=== PATIENT | female | born 1935 | race Caucasian/White ===

== ENCOUNTER 2016-07-24 22:46 | Emergency (ER) | payer MEDICARE, BC ==
[~2016-07-24] VITALS: Ht 162.6 cm; Wt 74.8 kg
[~2016-07-24 22:46] MED LIST: AMLO5TAB2 PO; ASPI81TA2 PO; ATOR20TA58 PO; BETA10DR OP; BRIN10DR EACHEYE; CALC500T50 PO; CHOL100013 PO; GABA-586 PO; LATA2.5D2 EACHEYE; LEVO75TA5 PO; LIDO700A4 TP; LISI40TA PO; METO25TA9 PO; OMEP40CA5 PO; OXYC10TA PO; RIVA15TA PO; RIVA20TA2 PO
--- NOTE | 2016-07-24 23:13 | PHYS DOC ---
Past Medical History Past Medical History: Other Additional Past Medical Histor: bilat breast ca 2011,osteo-cartilagenous exostosis of tib/fib, Past Surgical History: Other Additional Past Surgical Histo: bilat breast cancer Alcohol Use: None Drug Use: None Adult General Chief Complaint Chief Complaint: UPPER EXTREMITY PAIN HPI HPI Patient is a 81 year old female who presents with right shoulder pain. Patient reports approximately 2030 tonight she started having pain in her right posterior shoulder near the shoulder blade. She reports a dull ache with occasional sharp shooting pain without clear inciting or mitigating factors. She took an oxycodone he uses for chronic pain, with insufficient relief. She denies any anterior chest pain. She also denies shortness of breath. She does report that her bones of been hurting today with the weather change. No other acute complaints. Review of Systems Review of Systems Constitutional: Denies fever or chills Eyes: Denies change in visual acuity or eye pain HENT: Denies nasal congestion or sore throat Respiratory: Denies cough or shortness of breath Cardiovascular: Denies chest pain GI: Denies abdominal pain, nausea, vomiting, bloody stools or diarrhea : Denies dysuria or hematuria Musculoskeletal: R posterior shoulder pain Integument: Denies rash or skin lesions Neurologic: Denies headache, focal weakness or sensory changes Current Medications Current Medications Current Medications Medications (Trade) Dose Ordered Sig/Vaughn Start Time Stop Time Status Last Admin Dose Admin Diazepam (Valium) 5 mg 1X ONCE 07/24/16 23:30 07/24/16 23:31 DC 07/24/16 23:40 5 MG Allergies Allergies Allergies Coded Allergies Type Severity Reaction Last Updated Verified No Known Drug Allergies 08/29/15 No Physical Exam Physical Exam Constitutional: Well developed, well nourished, no acute distress, non-toxic appearance HENT: Normocephalic, atraumatic, bilateral external ears normal Eyes: EOMI, conjunctiva normal, no discharge Neck: Normal range of motion, no stridor Cardiovascular: Heart rate normal, regular rhythm, no murmur Lungs & Thorax: Bilateral breath sounds clear to auscultation Abdomen: Bowel sounds normal, soft, non-distended, no TTP Skin: Warm, dry, no erythema, no rash Extremities: R shoulder visually unremarkable compared to L; full active ROM, 2 + radial pulse, sensation to light touch fully intact; mild TTP along medial scapula Neurologic: Alert and oriented X 3, no gross deficits noted Current Patient Data Vital Signs Vital Signs Date Time Temp Pulse Resp B/P Pulse Ox O2 Delivery O2 Flow Rate FiO2 07/24/16 23:08 98.3 65 20 180/79 98 Room Air 98.3 EKG EKG EKG (my read): sinus rhythm, rate 67, R superior axis deviation, single PVC noted, no acute ST/T changes Radiology/Procedures Radiology/Procedures CXR (my read): No acute abnormality X-ray R shoulder (my read): No acute abnormality Course & Med Decision Making Course & Med Decision Making Pertinent Labs and Imaging studies reviewed. (See chart for details) Patient is 81-year-old female who presents with right shoulder pain. Suspect muscle spasm. Will obtain chest x-ray and x-ray of right shoulder. Will also check EKG and labs. Dose of Valium ordered for muscle relaxation. EKG and x-ray results per my read as above. Discussed results of these with patient and daughter. Patient reports pain alleviated after receiving Valium. Still awaiting results of blood work. At this time will turn patient care over to Dr. Whalen. Assuming no marked abnormality on blood work will plan discharge home with rx for valium, instructions for close follow up, strict return precautions. Dragon Disclaimer Dragon Disclaimer This electronic medical record was generated, in whole or in part, using a voice recognition dictation system. Departure Departure Impression: Primary Impression: Right shoulder pain Referrals: DEUCE PADILLA MD (PCP) Patient Instructions: Muscle Cramps, Shoulder Pain Additional Instructions: Thank you for allowing us to provide care today in the Emergency Department. Take the provided medication as directed. Use caution after taking this medication as it can make you drowsy. Schedule a follow up appointment with your primary care doctor. Return promptly to the Emergency Department if you develop any new or concerning symptoms. Scripts Diazepam (Valium)5 Mg Tablet5 Mg PO TID PRN MUSCLE SPASMS #10 TAB Prov:PITA GOMEZ MD 07/25/16 PITA GOMEZ MD Jul 24, 2016 23:13
[2016-07-24] MEDS ORDERED: DIAZEPAM 5 MG TABLET PO ONE (23:30)
[2016-07-25] MEDS ORDERED: DIAZ5TAB PO (00:42)
[2016-07-25 00:58] LABS: BASO # 0.1 x10^3/uL (0.0-0.2); BASO % 2 % (0-3); EOS % 4 % (0-3); HEMOGLOBIN 11.3 g/dL (12.0-15.5); LYMPH % 26 % (24-48); MEAN CORPUSCULAR HEMOGLOBIN 32 pg (25-35); MEAN CORPUSCULAR HGB CONC 33 g/dL (31-37); MEAN CORPUSCULAR VOLUME 97 fL (79-100); MONO % 8 % (0-9); NEUT % 60 % (31-73); PLATELET COUNT 183 x10^3/uL (140-400); RED BLOOD COUNT 3.49 x10^6/uL (3.50-5.40); RED CELL DISTRIBUTION WIDTH 13.7 % (11.5-14.5); WHITE BLOOD COUNT 3.7 x10^3/uL (4.0-11.0)
[2016-07-25 01:11] LABS: GFR 53.5; POTASSIUM 3.6 mmol/L (3.5-5.1)
[2016-07-25 01:30] VITALS: BP 183/74
--- NOTE | 2016-07-25 08:19 | RAD ---
Right shoulder, 3 views, 07/24/2016: History: Shoulder pain The bony structures are demineralized. No fracture or dislocation is identified. There is mild spurring at the acromioclavicular and glenohumeral articulations. There is mild deformity of the proximal right humeral shaft suggesting small bony exostoses versus old posttraumatic deformity. Surgical clips are projected over the right axillary region. IMPRESSION: 1. Bony demineralization. 2. Mild degenerative change. 3. No acute bony abnormality is detected.
--- NOTE | 2016-07-25 08:21 | RAD ---
Chest, 2 views, 07/24/2016: History: Shoulder pain Comparison is made to a study from 08/29/2015. The heart is mildly enlarged. There is calcific plaquing and tortuosity of the thoracic aorta. The pulmonary vascularity is normal. No pulmonary infiltrates are seen. There is no evidence of pleural fluid. The bony structures are demineralized. There is mild spurring in the spine. Surgical clips are projected over both axillary regions. IMPRESSION: 1. Mild cardiomegaly and aortic atherosclerosis. 2. No acute cardiopulmonary abnormality is detected.
--- NOTE | 2016-07-25 12:12 | EKG ---
[facility] [address] [place] [address] Test Date: 2016-07-24 Test Time: 22:54:35 Pat Name: JONEL KEATING Department: Room: Gender: F [employer] Manager: : 1935 Requested By: PITA GOMEZ Order Number: [id number] Reading MD: Measurements Intervals [place] Rate: 67 P: 161 CA: 160 QRS: -166 QRSD: 86 T: 164 QT: 380 QTc: 404 Interpretive Statements SINUS RHYTHM VENTRICULAR PREMATURE COMPLEX(ES) ABNORMAL RIGHT SUPERIOR AXIS DEVIATION QRS(T) CONTOUR ABNORMALITY CONSIDER ANTEROSEPTAL MYOCARDIAL DAMAGE CONSISTENT WITH HIGH LATERAL INFARCT AGE UNDETERMINED CONSISTENT WITH INFERIOR INFARCT AGE UNDETERMINED RI6.01 Unconfirmed report No previous ECG available for comparison
== END 2016-07-25 01:44 | disposition home or self-care (01) ==
LOC: ER 22:46
DX: M25.511 Pain in right shoulder (principal)
CPT/HCPCS: 36415; 71020; 73030; 80048; 84484; 85027; 93005; 99285-25

== ENCOUNTER → 2016-10-08 | Outpatient (CLI) | payer MEDICARE, BC ==
[~2016-10-08] MED LIST changes: +DIAZ5TAB PO
--- NOTE | 2016-10-08 16:22 | KCIC ---
PROCEDURE Three-view right knee HISTORY Chronic right knee pain after a fall 6 weeks ago. COMPARISON October 02, 2015. FINDINGS Right knee replacement. Numerous osteochondromas identified at the distal femur and proximal tibia and fibula, compatible with multiple hereditary exostoses, correlate with clinical history. No evidence of acute fracture. Generalized bone demineralization. Mild lucency about the tibial and femoral prostheses appears similar to the prior study. IMPRESSION 1. No evidence of acute fracture or dislocation. 2. Multiple osteochondromas, most compatible with multiple hereditary exostoses. Electronically signed by: Mark Mackenzie MD (October 08, 2016 16:21:10)
--- NOTE | 2016-10-08 16:39 | KCIC ---
PROCEDURE Two view study of the right hip HISTORY Chronic right hip pain after a fall 6 weeks ago. FINDINGS Multiple osteochondromas are seen. No osteolytic process is evident. No acute fracture is seen. No dislocation of the right hip joint is seen. There is mild primary degenerative osteoarthritis of the right hip joint. Heterotopic soft tissue ossification is seen. A sacroplasty is evident on the right side. IMPRESSION Osteochondromatosis. No acute fracture. Electronically signed by: Frank Hutchison MD (October 08, 2016 16:38:44)
== END | disposition home or self-care (01) ==
LOC: KCIC 15:31
PROVIDERS: ATTEND Internal Medicine
DX: M25.561 Pain in right knee (principal); G89.29 Other chronic pain; M25.551 Pain in right hip
CPT/HCPCS: 73502; 73562

== ENCOUNTER → 2017-12-16 | Outpatient (CLI) | payer MEDICARE, BC | END | disposition home or self-care (01) | LOC: KCIC 16:01 | DX: S42.292A Other displaced fracture of upper end of left humerus, initial encounter for closed fracture (principal); M79.89 Other specified soft tissue disorders; I12.9 Hypertensive chronic kidney disease with stage 1 through stage 4 chronic kidney disease, or unspecified chronic kidney disease; E78.5 Hyperlipidemia, unspecified; E03.9 Hypothyroidism, unspecified; N18.3 Chronic kidney disease, stage 3 (moderate); K21.9 Gastro-esophageal reflux disease without esophagitis; J45.909 Unspecified asthma, uncomplicated; X58.XXXA Exposure to other specified factors, initial encounter; Y93.89 Activity, other specified; Y92.89 Other specified places as the place of occurrence of the external cause; Y99.8 Other external cause status | CPT/HCPCS: 73080; 73090 ==

== ENCOUNTER 2017-12-17 12:21 | Emergency (ER) | payer MEDICARE, BC | END 2017-12-17 14:15 | disposition home or self-care (01) | LOC: ER 12:21 | DX: S52.002A Unspecified fracture of upper end of left ulna, initial encounter for closed fracture (principal); S80.01XA Contusion of right knee, initial encounter; E78.00 Pure hypercholesterolemia, unspecified; K21.9 Gastro-esophageal reflux disease without esophagitis; I48.91 Unspecified atrial fibrillation; I10 Essential (primary) hypertension; E03.9 Hypothyroidism, unspecified; W01.0XXA Fall on same level from slipping, tripping and stumbling without subsequent striking against object, initial encounter; Y93.89 Activity, other specified; Y99.8 Other external cause status; Y92.89 Other specified places as the place of occurrence of the external cause | CPT/HCPCS: 29125; 73562; 99284-25 ==

== ENCOUNTER 2018-01-06 19:16 | Emergency (ER) | payer MEDICARE, BC ==
[~2018-01-06] VITALS: Ht 162.6 cm; Wt 70.3 kg
[~2018-01-06 19:16] MED LIST changes: +ASPI-630 PO; -ASPI81TA2 PO; -CALC500T50 PO; +CALC500T54 PO; +LISI-130 PO; -LISI40TA PO; +METO-239 PO; -METO25TA9 PO
--- NOTE | 2018-01-06 20:00 | PHYS DOC ---
Past Medical History Past Medical History: A-Fib, Anxiety, Fibromyalgia, GERD, High Cholesterol, Hypertension, Hypothyroid, Other Additional Past Medical Histor: bilat breast ca 2011,osteo-cartilagenous exostosis of tib/fib, Past Surgical History: Other Additional Past Surgical Histo: bilat breast cancer Alcohol Use: None Drug Use: None Adult General Chief Complaint Chief Complaint: ALTERED MENTAL STATUS HPI HPI Patient is a 82 year old female who is brought in by daughter complaining of "full blown dementia". By that she means patient is more forgetful she has noticed some mild forgetfulness over the last few months over the last 2 weeks she has increased. She is complaining more of really not remembering much. Apparently she went to the doctor today to check on her elbow and then later in the afternoon the patient did not remember the doctor's appointment she did not last time she took her medication she was at home which she did not know that she was at home. Daughters brought her in to be evaluated. She is very worried about this severe dementia that is just apparently cropped up. She denies any symptoms no headache no chest pain no fever no shortness of breath no coughing she says she is eating well the elbow is actually healing quite well. Chronic knee pain Review of Systems Review of Systems Negative for dysuria All other systems were reviewed and found to be within normal limits, except as documented in this note. Current Medications Current Medications Current Medications Medications (Trade) Dose Ordered Sig/Vaughn Start Time Stop Time Status Last Admin Dose Admin Cephalexin HCl (Keflex) 500 mg 1X STAT 01/06/18 21:15 01/06/18 21:18 DC 01/06/18 21:37 500 MG Allergies Allergies Allergies Coded Allergies Type Severity Reaction Last Updated Verified No Known Drug Allergies 08/29/15 No Physical Exam Physical Exam Constitutional: Well developed, well nourished, no acute distress, non-toxic appearance. [] HENT: Normocephalic, atraumatic, bilateral external ears normal, oropharynx moist, no oral exudates, nose normal. [] Eyes: PERRLA, EOMI, conjunctiva normal, no discharge. [] Neck: Normal range of motion, no tenderness, supple, no stridor. [] Cardiovascular:Heart rate regular rhythm, no murmur [] Lungs & Thorax: Bilateral breath sounds clear to auscultation [] Abdomen: Bowel sounds normal, soft, no tenderness, no masses, no pulsatile masses. [] Skin: Warm, dry, no erythema, no rash. [] Back: No tenderness, no CVA tenderness. [] Extremities: Mild tenderness of bilateral knees no trauma seen Neurologic: Alert and responsive PLEASANTLy confused moving all extremities. Psychologic: Affect normal, judgement normal, mood normal. [] Current Patient Data Vital Signs Vital Signs Date Time Temp Pulse Resp B/P (MAP) Pulse Ox O2 Delivery O2 Flow Rate FiO2 01/06/18 22:00 66 18 99 01/06/18 19:22 98.0 182/88 (119) Room Air 98.0 Lab Values Laboratory Tests Test 01/06/18 20:04 01/06/18 20:15 01/06/18 21:25 White Blood Count 4.7 x10^3/uL (4.0-11.0) Red Blood Count 3.94 x10^6/uL (3.50-5.40) Hemoglobin 13.1 g/dL (12.0-15.5) Hematocrit 39.1 % (36.0-47.0) Mean Corpuscular Volume 99 fL (79-100) Mean Corpuscular Hemoglobin 33 pg (25-35) Mean Corpuscular Hemoglobin Concent 34 g/dL (31-37) Red Cell Distribution Width 15.8 % (11.5-14.5) H Platelet Count 268 x10^3/uL (140-400) Neutrophils (%) (Auto) 66 % (31-73) Lymphocytes (%) (Auto) 21 % (24-48) L Monocytes (%) (Auto) 10 % (0-9) H Eosinophils (%) (Auto) 2 % (0-3) Basophils (%) (Auto) 1 % (0-3) Neutrophils # (Auto) 3.1 x10^3uL (1.8-7.7) Lymphocytes # (Auto) 1.0 x10^3/uL (1.0-4.8) Monocytes # (Auto) 0.5 x10^3/uL (0.0-1.1) Eosinophils # (Auto) 0.1 x10^3/uL (0.0-0.7) Basophils # (Auto) 0.1 x10^3/uL (0.0-0.2) Prothrombin Time 12.8 SEC (11.7-14.0) Prothrombin Time INR 1.0 (0.8-1.1) Urine Collection Type Unknown Urine Color Yellow Urine Clarity Clear Urine pH 5.0 Urine Specific [place] 1.020 Urine Protein Negative mg/dL (NEG-TRACE) Urine Glucose (UA) Negative mg/dL (NEG) Urine Ketones (Stick) Negative mg/dL (NEG) Urine Blood Moderate (NEG) Urine Nitrite Negative (NEG) Urine Bilirubin Negative (NEG) Urine Urobilinogen Dipstick 0.2 mg/dL (0.2 mg/dL) Urine Leukocyte Esterase Moderate (NEG) Urine RBC 1-2 /HPF (0-2) Urine WBC 1-4 /HPF (0-4) Urine Bacteria Moderate /HPF (0-FEW) Urine Hyaline Casts Few /HPF Urine Mucus Mod /LPF Sodium Level 141 mmol/L (136-145) Potassium Level 3.1 mmol/L (3.5-5.1) L Chloride Level 104 mmol/L (98-107) Carbon Dioxide Level 24 mmol/L (21-32) Anion Gap 13 (6-14) Blood Urea Nitrogen 12 mg/dL (7-20) Creatinine 1.1 mg/dL (0.6-1.0) H Estimated GFR (Cockcroft-Gault) 47.8 BUN/Creatinine Ratio 11 (6-20) Glucose Level 103 mg/dL (70-99) H Calcium Level 9.3 mg/dL (8.5-10.1) Total Bilirubin 0.6 mg/dL (0.2-1.0) Aspartate Amino Transferase (AST) 20 U/L (15-37) Alanine Aminotransferase (ALT) 26 U/L (14-59) Alkaline Phosphatase 89 U/L (46-116) Total Protein 7.2 g/dL (6.4-8.2) Albumin 3.6 g/dL (3.4-5.0) Albumin/Globulin Ratio 1.0 (1.0-1.7) Ethyl Alcohol Level < 10 mg/dL (0-10) Laboratory Tests 01/06/18 20:04 Laboratory Tests 01/06/18 21:25 EKG EKG [] Interpretation Time: EKG shows normal sinus rhythm rate of 71 no ischemic changes noted interpreted by me time of encounter. Chest x-ray shows no definite pneumonia. There is probably atelectasis at the right lower lung field. Radiology/Procedures Radiology/Procedures [] Course & Med Decision Making Course & Med Decision Making Pertinent Labs and Imaging studies reviewed. (See chart for details) []82-year-old female has a history presenting with a apparent increasing forgetfulness over the last couple weeks daughter does point out to this has been going on for a few months but seems to drastically worse over 2-3 week. We did get a CT head which was negative basic lab work which was unrevealing and patient may have a mild UTI with bacteria on a catheterized sample so prescription for antibiotics was given patient was advised to follow-up with primary care doctor for further consideration of possible diagnosis of dementia. She is comfortable taking the patient home and has family support that can watch her and make sure that she is safe. Dragon Disclaimer Dragon Disclaimer This electronic medical record was generated, in whole or in part, using a voice recognition dictation system. Departure Departure Impression: Primary Impression: Altered mental status Disposition: 01 HOME, SELF-CARE Condition: STABLE Referrals: DEUCE PADILLA MD (PCP) Scripts Cephalexin (CEPHALEXIN) 500 Mg Capsule 1 CAP PO QID, #40 CAP Prov: BRAD LANDEROS MD 01/06/18 BRAD LANDEROS MD Jan 06, 2018 20:00
[2018-01-06 20:15] LABS: BASO # 0.1 x10^3/uL (0.0-0.2); BASO % 1 % (0-3); EOS # 0.1 x10^3/uL (0.0-0.7); EOS % 2 % (0-3); HEMATOCRIT 39.1 % (36.0-47.0); HEMOGLOBIN 13.1 g/dL (12.0-15.5); LYMPH % 21 % (24-48); MEAN CORPUSCULAR HEMOGLOBIN 33 pg (25-35); MEAN CORPUSCULAR HGB CONC 34 g/dL (31-37); MEAN CORPUSCULAR VOLUME 99 fL (79-100); MONO # 0.5 x10^3/uL (0.0-1.1); MONO % 10 % (0-9); NEUT # 3.1 x10^3uL (1.8-7.7); NEUT % 66 % (31-73); PLATELET COUNT 268 x10^3/uL (140-400); RED BLOOD COUNT 3.94 x10^6/uL (3.50-5.40); RED CELL DISTRIBUTION WIDTH 15.8 % (11.5-14.5); WHITE BLOOD COUNT 4.7 x10^3/uL (4.0-11.0)
[2018-01-06 20:23] LABS: BILIRUBIN,URINE NEGATIVE (NEG); CLARITY,URINE CLEAR; COLOR,URINE YELLOW; NITRITE,URINE NEGATIVE (NEG); PROTEIN,URINE NEGATIVE (NEG-TRACE); UROBILINOGEN,URINE 0.2 mg/dL (0.2 mg/dL)
[2018-01-06 20:24] LABS: PROTHROMBIN TIME PATIENT 12.8 SEC (11.7-14.0)
--- NOTE | 2018-01-06 20:33 | RAD ---
CT scan of the head without contrast 01/06/2018 Clinical History: Altered mental status. Technique: Unenhanced, contiguous, 5 mm axial sections were obtained through the head. Findings: There is generalized parenchymal atrophy. Areas of decreased attenuation are seen within the periventricular and subcortical white matter of both cerebral hemispheres consistent with areas of small vessel ischemic disease. No acute parenchymal abnormality is seen. No extra-axial fluid collection is noted. No skull fracture is seen. Impression: No acute intracranial abnormality is seen. Electronically signed by: Alli Lock MD (01/06/2018 8:29 PM) [facility]
[2018-01-06 20:35] LABS: BACTERIA,URINE MODERATE /HPF (0-FEW); HYALINE CASTS, URINE FEW /HPF
[2018-01-06] MEDS ORDERED: CEPHALEXIN 250 MG CAPSULE. PO STA (21:15)
[2018-01-06] MEDS ORDERED: CEPH500C PO (21:26)
[2018-01-06 21:57] LABS: CALCIUM 9.3 mg/dL (8.5-10.1); CREATININE 1.1 mg/dL (0.6-1.0); GFR 47.8; POTASSIUM 3.1 mmol/L (3.5-5.1)
[2018-01-06 22:00] VITALS: BP 176/80
[2018-01-06 22:07] LABS: ALBUMIN 3.6 g/dL (3.4-5.0); TOTAL BILIRUBIN 0.6 mg/dL (0.2-1.0); TOTAL PROTEIN 7.2 g/dL (6.4-8.2)
--- NOTE | 2018-01-06 22:10 | RAD ---
AP portable chest radiograph January 06, 2018 Clinical History: Hypertension. Altered mental status. An AP erect portable digital radiograph of the chest was obtained. Comparison study is dated 07/24/2016. The cardiac silhouette is mildly enlarged. The thoracic aorta is tortuous. Atherosclerotic calcification of the thoracic aorta is seen. Surgical clips overlie the axilla, left greater than right. No acute pulmonary infiltrate is noted. No pneumothorax or pleural effusion is seen. Old healed fracture of the proximal left humerus is noted. Degenerative changes are seen involving the thoracic spine and both shoulders. Impression: No acute abnormality is seen. Electronically signed by: Alli Lock MD (01/06/2018 10:06 PM) [facility]
--- NOTE | 2018-01-07 06:20 | EKG ---
[facility] [address] [place] [address] Test Date: 2018-01-06 Test Time: 19:51:57 Pat Name: AB KEATING Department: Room: Gender: F [employer] Market Consultant: SHANNON : 1935 Requested By: BRAD LANDEROS Order Number: [id number] Reading MD: Measurements Intervals [place] Rate: 71 P: -31 [place]: 174 QRS: -12 QRSD: 96 T: 39 QT: 416 QTc: 452 Interpretive Statements SINUS RHYTHM ATRIAL PREMATURE COMPLEX(ES) LEFTWARD AXIS QRS(T) CONTOUR ABNORMALITY CONSISTENT WITH INFERIOR INFARCT PROBABLY OLD ABNORMAL ECG RI6.01 No previous ECG available for comparison
== END 2018-01-06 22:13 | disposition home or self-care (01) ==
LOC: ER 19:16
DX: R41.82 Altered mental status, unspecified (principal); F03.90 Unspecified dementia, unspecified severity, without behavioral disturbance, psychotic disturbance, mood disturbance, and anxiety; F41.9 Anxiety disorder, unspecified; E78.00 Pure hypercholesterolemia, unspecified; K21.9 Gastro-esophageal reflux disease without esophagitis; E03.9 Hypothyroidism, unspecified; I10 Essential (primary) hypertension; I48.91 Unspecified atrial fibrillation
CPT/HCPCS: 36415; 51701; 70450; 71045; 80053; 81001; 85025; 85610; 87086; 87186; 93005; 99285; G0480

== ENCOUNTER → 2018-06-23 | Outpatient (CLI) | payer MEDICARE, BC ==
[~2018-06-23] MED LIST changes: -AMLO5TAB2 PO; +AMLO5TAB7 PO; +CEPH500C PO; -GABA-586 PO; +GABA300C18 PO
--- NOTE | 2018-06-23 16:15 | KCIC ---
CT MAXILLOFACIAL WO CONTRAST, CT HEAD WO CONTRAST Indication: Patient fell 4 days ago. Facial abrasions. Exposure: One or more of the following individualized dose reduction techniques were utilized for this examination: 1. Automated exposure control 2. Adjustment of the mA and/or kV according to patient size 3. Use of iterative reconstruction technique. Comparison: Prior CT head scan of January 06, 2018. Contrast: None FINDINGS: Posterior fossa is unremarkable. No evidence of acute intracranial hemorrhage or abnormal extra-axial fluid collection. No evidence of mass effect or midline shift. Low-density in the white matter bilaterally, a nonspecific finding, but which is commonly due to chronic small vessel ischemic disease in a patient of this age. Prominence of ventricles and sulci, compatible with involutional change or atrophy. Intracranial arterial calcifications are identified. Visualized paranasal sinuses and mastoids are clear. No evidence of depressed skull fracture. Visualized orbits are unremarkable. Impression:Chronic findings as detailed above. Negative for acute intracranial hemorrhage or mass effect. FACIAL BONES: Nasal bone: Mild irregularity of the anterior nasal bone but no displaced acute fracture. Orbital floors: Intact Bones: No acute fracture is identified. Visualized sinuses: Clear. Globes/Orbits: Unremarkable. Mandible/Maxilla: Unremarkable. Soft tissue: Unremarkable. IMPRESSION: No evidence of acute fracture or other acute abnormality. Mild irregularity of the anterior nasal bone but no definite acute displaced fracture. Electronically signed by: Mark Mackenzie MD (06/23/2018 4:11 PM) [id number]
--- NOTE | 2018-06-23 16:23 | KCIC ---
KNEE RIGHT 3V History: Recent fall, facial abrasion.. Comparison: December 17, 2017 Knee replacement again seen. Alignment is stable since prior study. There is extensive deformity of the distal femur and proximal tibia and fibula, raising the question of multiple hereditary exostoses. There could also be a component of old fracture deformity. Severe bone demineralization. No definite acute fracture is identified. No dislocation. IMPRESSION: 1. No definite acute fracture or dislocation. 2. Extensive deformity of the regional skeleton, suspicious for multiple hereditary exostoses. Electronically signed by: Mark Mackenzie MD (06/23/2018 4:19 PM) [id number]
== END | disposition home or self-care (01) ==
LOC: KCIC CT 15:35
PROVIDERS: ATTEND Internal Medicine
DX: S00.81XA Abrasion of other part of head, initial encounter (principal); I67.82 Cerebral ischemia; I67.2 Cerebral atherosclerosis; M81.0 Age-related osteoporosis without current pathological fracture; Z96.651 Presence of right artificial knee joint; W19.XXXA Unspecified fall, initial encounter; Y93.89 Activity, other specified; Y92.89 Other specified places as the place of occurrence of the external cause; Y99.8 Other external cause status
CPT/HCPCS: 70450; 70486; 73562